=== PATIENT | female | born 1980 | race Two or more races ===

== ENCOUNTER 2019-05-11 21:43 | Emergency (ER) | payer OTHER ==
--- NOTE | 2019-05-11 21:56 | PDOC ---
Attending Attestation - Resident Resident Name: Simi Carey - ED Attending Attestation I have performed the following: I have examined & evaluated the patient, The case was reviewed & discussed with the resident, I agree w/resident's findings & plan - HPI HPI: 05/11/19 23:53 see resident hpi - Physicial Exam PE: 05/11/19 23:54 agree with resident exam - Medical Decision Making 05/11/19 23:54 38-year-old female with intermittent left-sided chest pain and some shortness of breath PERC and Wells scores are negative/0 Plan for troponin x2, EKG x2 and CT scan of the brain as patient is at baseline at this time If negative plan for DC with primary care follow-up
--- NOTE | 2019-05-11 22:00 | PDOC ---
History of Present Illness - General Stated Complaint: DIFFICULTY BREATHING Time Seen by Provider: 05/11/19 21:53 - History of Present Illness Initial Comments: HPI: 38yo F with PMH of schizophrenia, asthma presenting with chest pressure x 1 week. Patient states she was evaluated at [facility] ER for the same complaint yesterday and was discharged. She presents today because she felt chest "pressure" once again around 6pm radiating to her left shoulder. Denies worsening of pain with exertion. Reports associated shortness of breath. Never felt pain like this before one week ago. Never seen a varnisher. Denies family history of heart problems or stroke. Lifetime non-smoker. No hemoptysis, no recent surgical history, no recent immobilization, no hormone use, no history of DVT or PE. No fever or chills. PCP: Dr. Coello ROS: Constitutional: no fever, no chills HEENT: no throat pain, no dysphagia Cardiovascular: +chest pain, no palpitations Respiratory: no cough, +shortness of breath Gastrointestinal: no abdominal pain, no diarrhea Genitourinary: no dysuria, no hematuria Musculoskeletal: no myalgia, no arthralgia Skin: no rash, no itching Neurologic: no headache, +weakness PE: General: Awake, alert, and fully oriented, in no acute distress Head: No signs of trauma Eyes: EOMI, sclera anicteric ENT: Moist mucus membranes Neck: Normal ROM, supple Lungs: Lungs clear, Normal breath sounds Cardio: Regular rhythm, S1 and S2 present Abdomen: Soft, nontender. No guarding, no rebound, no masses Extremities: Normal range of motion, Distal pulses present SKIN: Warm, Dry, normal turgor Neurologic: Cranial nerves II through XII intact. Normal speech, sensation, strength, coordination, and gait. ED Course/MDM: DDX including but not limited to ACS, PE, PNA, anemia, metabolic derangement, psych Labs, EKG, CXR 975mg tylenol PERC 0 and WELLS 0; low suspicion of PE Patient without cardiac risk factors Patient has not been on haldol for her schizophrenia for the past five months as she has been trying to get , denies SI/HI; states she has a follow up appointment with her psychiatrist early on in the new year; per my assessment , patient is not an acute risk to herself or others Patient also complains of blurry vision and intermittent pins/needles sensation in her legs; without focal neurologic deficits on exam; decision made to obtain CT head 05/11/19 22:00 CBC WBC 12.0 K/mm3 (4.0-10.0) H 05/11/19 23: RBC 4.30 M/mm3 (3.60-5.2) 05/11/19 23: Hgb 12.2 GM/dL (10.7-15.3) 05/11/19: Hct 37.4 % (32.4-45.2) 05/11/19: MCV 87.0 fl (80-96) 05/11/19: MCH 28.3 pg (25.7-33.7) 05/11/19: MCHC 32.5 g/dl (32.0-36.0) 05/11/19: RDW 13.9 % (11.6-15.6) 05/11/19: Plt Count 296 K/MM3 (134-434) 05/11/19: MPV 8.3 fl (7.5-11.1) 05/11/19: Absolute Neuts (auto) 7.2 K/mm3 (1.5-8.0) 05/11/19: Neutrophils % 59.6 % (42.8-82.8) 05/11/19: Lymphocytes % 30.3 % (8-40) 05/11/19: Monocytes % 8.2 % (3.8-10.2) 05/11/19: Eosinophils % 1.0 % (0-4.5) 05/11/19: Basophils % 0.9 % (0-2.0) 05/11/19: Nucleated RBC % 0 % (0-0) 05/11/19: Mild leukocytosis CMP Sodium 141 mmol/L (136-145) 05/11/19: Potassium 3.9 mmol/L (3.5-5.1) 05/11/19 23: Chloride 106 mmol/L (98-107) 05/11/19: Carbon Dioxide 28 mmol/L (21-32) 05/11/19:27 Anion Gap 7 MMOL/L (8-16) L 05/11/19 23:27 BUN 6.7 mg/dL (7-18) L 05/11/19 23:27 Creatinine 0.7 mg/dL (0.55-1.3) 05/11/19 23:27 Est GFR (CKD-EPI)AfAm 128.28 05/11/19 23:27 Est GFR (CKD-EPI)NonAf 110.69 05/11/19 23:27 Random Glucose 83 mg/dL (74-106) 05/11/19 23:27 Calcium 9.7 mg/dL (8.5-10.1) 05/11/19 23:27 Total Bilirubin 0.4 mg/dL (0.2-1) 05/11/19 23: AST 34 U/L (15-37) 05/11/19 23: ALT 38 U/L (13-61) 05/11/19 23: Alkaline Phosphatase 86 U/L (45-117) 05/11/19 23: Troponin I 0.02 ng/ml (0.00-0.05) 05/11/19 23:27 Total Protein 8.1 g/dl (6.4-8.2) 05/11/19 23: Albumin 4.1 g/dl (3.4-5.0) 05/11/19 23:27 Electrolytes unremarkable Normal Cr Tpn undetectable No transaminitis EKG #1: rate 73, QTc 473, NSR 05/12/19 00:54 CT head as read by imaging credit union manager: "FINDINGS: The ventricular system is midline and nondilated. The sulcal pattern is normal for the patient's age. There is no bleed, mass, extra-axial fluid collection or mass effect. No skull fracture or skull lesion is identified. The visualized paranasal sinuses and mastoid air cells are clear, other than a tiny left maxillary sinus retention cyst or polyp and minimal right ethmoid sinus mucosal thickening. IMPRESSION: No evidence of acute pathology. One or more of the following dose reduction techniques were used: automated exposure control, adjustment of the mA and/or kV according to patient size, use of iterative reconstructive technique. THIS DOCUMENT HAS BEEN ELECTRONICALLY SIGNED Mack Thurston MD 05/12/2019 01:47 EST" CXR without acte pathology, my impression Pending second tpn 05/12/19 01:50 2nd tpn also undetectable Pending second EKG 05/12/19 03:41 EKG #2: rate 67, QTc 490, NSR Patient without signs of cardiac ischemia To follow up with primary care physician Return precautions Stable for discharge 05/12/19 04:07 Patient asking if she can be admitted to the hospital or transferred to another facility for psychiatric evaluation as she feels "it is difficult to function." Patient maintains that she does not want to hurt herself or others. I explained that we do not have an emergent need to transfer and patient is stable for discharge. Patient instructed to call her psychiatrist in the morning and that in the event she has suicidal or homicidal ideation to call 01-28 or present to the ED. Patient voiced understanding. 05/12/19 05:10 Past History - Past Medical History Allergies/Adverse Reactions: Allergies Allergy/AdvReac Type Severity Reaction Status Date / Time corn Allergy Verified 05/11/19 22:16 Home Medications: Ambulatory Orders Albuterol Sulfate Inhaler - [Ventolin Hfa Inhaler -] 1 - 2 inh PO QID 05/11/19 Haloperidol Decanoate [Haldol Decanoate 100] 100 mg IM MONTHLY 05/11/19 ED Treatment Course - LABORATORY CBC & Chemistry Diagram: 05/11/19 23:27 05/11/19 23:27 Discharge - Discharge Information Problems reviewed: Yes Clinical Impression/Diagnosis: Chest pain Qualifiers: Chest pain type: unspecified Qualified Code(s): R07.9 - Chest pain, unspecified Condition: Stable Disposition: HOME - Follow up/Referral Referrals: Tarik Coello MD, MD [Primary Care Provider] - - Patient Discharge Instructions Patient Printed Discharge Instructions: DI for Chest Pain Additional Instructions: You came into the emergency department for chest pain. We performed blood work, an EKG, and an Xray which were within normal limits. A CT scan of your head was negative for acute pathology. Follow-up with your primary care physician within the next 72 hours to discuss this ED visit and to further evaluate your chest pain. Call and make an appointment at the number provided. Your workup is not complete until you do so. Call for emergency medicine services or go to the emergency room right away if you have symptoms of a heart attack, including: Chest pain, which may feel like a crushing weight A sense of fullness, squeezing, or pressure in the chest Rapid, irregular heartbeat Pain, tingling or numbness in the left shoulder and arm, the neck or jaw, or the right arm Sweating Nausea or vomiting Lightheadedness, weakness, or fainting Shortness of breath If you think you have an emergency, call for medical help right away. - Post Discharge Activity Work/Back to School Note: Back to Work
[2019-05-11 22:15] VITALS: TEMP 97.7; BMI 40.7
[2019-05-11] MEDS ORDERED: ACETAMINOPHEN 325 MG TABLET (FP) PO ONE (22:37)
[2019-05-11] MEDS ORDERED: ACETAMINOPHEN 325 MG TABLET (FP) ONE (23:02)
[2019-05-11 23:37] LABS: BASO % 0.9 % (0-2.0); HEMATOCRIT 37.4 % (32.4-45.2); HEMOGLOBIN 12.2 GM/dL (10.7-15.3); LYMPH % 30.3 % (8-40); MCH 28.3 pg (25.7-33.7); MCHC 32.5 g/dl (32.0-36.0); MEAN PLT VOLUME 8.3 fl (7.5-11.1); MONO % 8.2 % (3.8-10.2); NEUT % 59.6 % (42.8-82.8); PLATELET COUNT 296 K/MM3 (134-434); RDW 13.9 % (11.6-15.6)
[2019-05-11 23:54] LABS: INR 1.1 (0.83-1.09)
[2019-05-12 00:06] LABS: ALBUMIN 4.1 g/dl (3.4-5.0); BILIRUBIN,TOTAL 0.4 mg/dL (0.2-1); BLOOD UREA NITROGEN 6.7 mg/dL (7-18); CALCIUM 9.7 mg/dL (8.5-10.1); CREATININE 0.7 mg/dL (0.55-1.3); POTASSIUM 3.9 mmol/L (3.5-5.1); TOT PROT 8.1 g/dl (6.4-8.2)
[2019-05-12 04:43] VITALS: BP 137/68; PULSE 76
--- NOTE | 2019-05-12 10:15 | EKG ---
Test Reason : Blood Pressure : / mmHG Vent. Rate : 067 BPM Atrial Rate : 067 BPM P-R Int : 166 ms QRS Dur : 076 ms QT Int : 464 ms P-R-T Axes : 051 021 029 degrees QTc Int : 490 ms POOR DATA QUALITY, INTERPRETATION MAY BE ADVERSELY AFFECTED NORMAL SINUS RHYTHM WITH SINUS ARRHYTHMIA PROLONGED QT ABNORMAL ECG WHEN COMPARED WITH ECG OF 12-MAY-2019 00:07, NO SIGNIFICANT CHANGE WAS FOUND Confirmed by Issa Duke MD ([id number]) on 05/12/2019 10:14:32 AM Referred By: Confirmed By:Issa Duke MD
--- NOTE | 2019-05-12 10:15 | EKG ---
Test Reason : Blood Pressure : / mmHG Vent. Rate : 073 BPM Atrial Rate : 073 BPM P-R Int : 192 ms QRS Dur : 090 ms QT Int : 430 ms P-R-T Axes : 037 020 032 degrees QTc Int : 473 ms NORMAL SINUS RHYTHM NORMAL ECG NO PREVIOUS ECGS AVAILABLE Confirmed by Issa Duke MD ([id number]) on 05/12/2019 10:14:37 AM Referred By: Confirmed By:Issa Duke MD
== END 2019-05-12 05:02 | disposition home or self-care (01) ==
LOC: JER 21:43
DX: R07.9 Chest pain, unspecified (principal); J45.909 Unspecified asthma, uncomplicated; F20.9 Schizophrenia, unspecified; Z91.018 Allergy to other foods
CPT/HCPCS: 36415; 70450-TC; 71046-TC-FY; 80053; 84484; 84703; 85025; 85610; 93005; 93010; 99283-25